=== PATIENT | female | born 1980 | race Caucasian/White ===

== ENCOUNTER 2016-09-08 23:15 | Emergency (ER) | payer OTHER ==
--- NOTE | 2016-09-08 23:53 | ED ---
General Adult HPI - General Chief complaint: Headache Stated complaint: cough/body aches/headache Time Seen by Provider: 09/08/16 23:27 Source: patient, RN notes reviewed Mode of arrival: ambulatory Limitations: no limitations - History of Present Illness Initial comments: Chief complaint and history of present illness a 35-year-old female here with daughter. Both have cough. Patient states her cough been on and off for one month. She does complain of a headache for 7 days body aches for 7 days. Did not get a flu shot this year. No nausea no vomiting. 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 She's been on a 5 years - Related Data Home Medications Medication Instructions Recorded Confirmed Methadone [Dolophine] 45 mg PO DAILY 09/08/16 09/08/16 Multivitamins, Thera [Multivitamin] 1 tab PO DAILY 09/08/16 09/08/16 busPIRone HCl [Buspar] 5 mg PO TID 09/08/16 09/08/16 Allergies Allergy/AdvReac Type Severity Reaction Status Date / Time No Known Allergies Allergy Verified 09/08/16 23:55 Review of Systems ROS Statement: Those systems with pertinent positive or pertinent negative responses have been documented in the HPI. Review of systems patient complains of a headache no visual acuity changes she complains of a productive cough. No chest pain. No nausea no vomiting no skin rashes. All systems are reviewed. Past medical problems as noted above the chief complaint plus surgeries include a and cholecystectomy. Family history significant for ovarian cancer. The patient is a smoker strongly encouraged to stop denies alcohol use. ROS Other: All systems not noted in ROS Statement are negative. Past Medical History Past Medical History: No Reported History History of Any Multi-Drug Resistant Organisms: None Reported Past Surgical History: Section, Cholecystectomy Past Psychological History: Anxiety, Depression Smoking Status: Current every day smoker Past Alcohol Use History: None Reported Past Drug Use History: None Reported General Exam - General Exam Comments Initial Comments: General: The patient is awake and alert, does not appear ill. Complains of a headache for several days with a productive cough and body aches and pains. Vital signs show temperature 98.7 pulse 1:15 respiratory rate 18 pulse ox 90% room air blood pressure 126/85. Patient reports she's been on an antibiotic for 5 days. Eye: Pupils are equal, round and reactive to light, extra-ocular movements are intact ; there is normal conjunctiva bilaterally. No signs of icterus. Ears, nose, mouth and throat: There are moist mucous membranes and no oral lesions. Neck: The neck is supple, there is no tenderness . Cardiovascular: Tachycardic heart rate, 1:15.. No murmur, rub or gallop is appreciated. Respiratory: Lungs are clear to auscultation, respirations are non-labored, breath sounds are equal. No wheezes, stridor, rales, or rhonchi. Gastrointestinal: Soft, non-distended, non-tender abdomen without masses or organomegaly noted. Back: There is no tenderness to palpation in the midline. Musculoskeletal: Normal ROM, no tenderness, There is no pedal edema. There is no calf tenderness or swelling. Sensation intact. Neurological: No complaint of her evidence of any neuro deficits, no focal or lateralizing findings. Skin: Skin is warm and dry and no rashes or lesions are noted. Limitations: no limitations Course Vital Signs 09/08/16 23:17 Temperature 98.7 F Pulse Rate 115 H Respiratory 18 Rate Blood Pressure 126/85 O2 Sat by Pulse 98 Oximetry Medical Decision Making - Medical Decision Making Influenza A and B reported to be negative. Chest x-ray done AP lateral view and reviewed by radiologist his impression is no acute findings as read by Dr. Chan. Patient advised to continue and complete the antibiotic. She will be given a container to collect sputum in an return to the lab for provided before she leaves tonight. Advised to follow-up with on-call physician to the emergency room this evening Dr. Amaya - Lab Data Lab Results 09/08/16 Range/Units 23:47 Influenza Type A RNA Not Detected (Not Detectd) Influenza Type B (PCR) Not Detected (Not Detectd) Disposition Clinical Impression: Bronchitis Disposition: HOME SELF-CARE Condition: Stable Instructions: Acute Bronchitis (ED) Additional Instructions: Increase fluids. Complete the antibiotics as directed. Follow-up with on-call physician to the emergency room Time of Disposition: 00:56
--- NOTE | 2016-09-09 00:34 | XR ---
EXAM: XR Chest, 2 Views. CLINICAL HISTORY: Reason: Productive cough TECHNIQUE: Frontal and lateral views of the chest. COMPARISON: No relevant prior studies available. FINDINGS: Lungs: Unremarkable. No consolidation. Pleural space: Unremarkable. No pneumothorax. Heart: Unremarkable. No cardiomegaly. Mediastinum: Unremarkable. Bones/joints: Unremarkable. IMPRESSION: No acute findings.
[2016-09-09 01:25] VITALS: BP 126/71; PULSE 81; RESP 16; TEMP 97.9
== END 2016-09-09 01:24 | disposition home or self-care (01) ==
LOC: EC 23:15
DX: J40 Bronchitis, not specified as acute or chronic (principal); F41.9 Anxiety disorder, unspecified; F17.200 Nicotine dependence, unspecified, uncomplicated; Z79.899 Other long term (current) drug therapy; Z79.891 Long term (current) use of opiate analgesic
CPT/HCPCS: 71020; 87070; 87205; 87502; 99284